=== PATIENT | female | born 1995 | race African-American/Black ===

== ENCOUNTER 2023-11-27 23:12 | Inpatient (IN) | payer SELFPAY ==
[~2023-11-27] VITALS: Ht 170.2 cm; Wt 56.7 kg
[2023-11-27 23:53] LABS: BASOPHILS % 0.3 % (0.0-2.0); DIFFERENTIAL COMMENT 0; HEMATOCRIT. 38.9 % (36.0-48.0); HEMOGLOBIN. 11.7 g/dL (12.0-16.0); LYMPHOCYTES % 21.3 % (20.0-50.0); MEAN CORPUSCULAR HEMOGLOBIN 24.3 pg (28.0-32.0); MEAN CORPUSCULAR HGB CONC 30.2 g/dL (31.0-37.0); MEAN CORPUSCULAR VOLUME 80.6 fL (81.0-99.0); MEAN PLATELET VOLUME 8.9 fl (7.4-10.4); NEUTROPHILS % 73.4 % (40.0-76.0); PLATELET 480 x1000/uL (130-400); RED BLOOD CELL COUNT 4.83 mill/uL (4.2-5.4); RED CELL DISTRIBUTION WIDTH 18.9 % (11.6-14.6); WHITE BLOOD COUNT 12.7 x1000/uL (4.5-11.0)
[2023-11-27 23:58] LABS: CHLORIDE 101 mEq/L (98-107); SODIUM 134 mEq/L (136-145)
[2023-11-27 23:59] LABS: CARBON DIOXIDE 15 mEq/L (21-32)
[2023-11-28] VITALS (15 sets, daily range): BP systolic 111–154; BP diastolic 66–104; PULSE 83–108; RESP 11–27; TEMP 98–98.6
[2023-11-28 00:04] LABS: GLUCOSE 187 mg/dL (70-105)
[2023-11-28 00:05] LABS: UREA NITROGEN BLOOD 20 mg/dL (9-23)
[2023-11-28 00:12] LABS: CLARITY URINE CLOUDY (CLEAR); COLOR URINE YELLOW (YELLOW); GLUCOSE URINE NEGATIVE (NEGATIVE); KETONES URINE 4+ (NEGATIVE); LEUKOCYTE ESTERASE URINE 1+ (NEGATIVE); NITRITE URINE NEGATIVE (NEGATIVE); OCCULT BLOOD URINE 3+ (NEGATIVE); PH URINE 5.5 (4.5-8.0); PROTEIN URINE 2+ (NEGATIVE); SPECIFIC GRAVITY URINE 1.026 (1.005-1.030)
[2023-11-28 00:17] LABS: POTASSIUM 7.8 mEq/L (3.5-5.1)
[2023-11-28] MEDS ORDERED: DEXTROSE 50% WATER 50ML SYRINGE IV PRN ×3 (00:30→17:45)
[2023-11-28] MEDS: BLOOD SUGAR DIAGNOSTIC STRIP TEST SCH ×3 (00:30→17:50)
[2023-11-28] MEDS ORDERED: INSULIN REGULAR (DRIP) 100 UNITS in SODIUM CHLORIDE 0.9% 99 ML IV SCH (00:30)
[2023-11-28] MEDS ORDERED: MAGNESIUM 2 G PREMIX 50 ML IV PRN (00:30)
[2023-11-28] MEDS ORDERED: POTASSIUM CHLORIDE 40 MEQ in SODIUM CHLORIDE 0.9% 230 ML IV PRN ×2 (00:30→09:15)
[2023-11-28] MEDS ORDERED: SODIUM PHOSPHATE 15 MMOL in SODIUM CHLORIDE 0.9% 245 ML IV PRN (00:30)
[2023-11-28] MEDS ORDERED: CEFTRIAXONE 1GM/50ML 50 ML IV ONE (00:30)
[2023-11-28] MEDS ORDERED: BLOOD SUGAR DIAGNOSTIC STRIP TEST PRN ×2 (00:30→09:15)
[2023-11-28 00:58] LABS: INR 0.9; PROTHROMBIN TIME 10.6 sec (9.6-11.0)
[2023-11-28 01:00] LABS: ALANINE AMINOTRANSFERASE 23 IU/L (10-49); ALBUMIN 5.4 g/dL (3.2-4.8); ASPARTATE AMINOTRANSFERASE 60 IU/L (<34); BILIRUBIN DIRECT 0.3 mg/dL (<=3.0); BILIRUBIN TOTAL 1.4 mg/dL (0.1-1.0); PHOSPHORUS 3.6 mg/dL (2.5-4.9); PROTEIN TOTAL 9.1 g/dL (6.0-8.3)
[2023-11-28 01:06] LABS: TROPONIN I HIGH SENSITIVITY < 4 ng/L (3.0-34)
[2023-11-28 01:26] LABS: LACTIC ACID 2.1 mmol/L (0.4-2.0)
[2023-11-28 01:29] LABS: HCG SCREEN NEGATIVE
[2023-11-28] MEDS: CEFTRIAXONE 1GM/50ML 50 ML IV NR (03:04)
[2023-11-28] MEDS: SODIUM CHLORIDE 0.9% 1000ML BAG (SEPSIS BOLUS) IV ONE (03:05)
[2023-11-28] MEDS: DEXT 5%/0.9% NACL 1,000 ML IV SCH ×2 (03:18→09:30)
[2023-11-28] MEDS: KCL 20MEQ/100ML PREMIX 100 ML IV PRN (03:30)
[2023-11-28 04:18] LABS: CHLORIDE 100 mEq/L (98-107); POTASSIUM 4.4 mEq/L (3.5-5.1); SODIUM 136 mEq/L (136-145)
[2023-11-28 04:19] LABS: CALCIUM 9.6 mg/dL (8.7-10.4); CARBON DIOXIDE 15 mEq/L (21-32)
[2023-11-28 04:20] LABS: SQUAMOUS EPITHELIAL CELL URINE 1+ /lpf (RARE/1+)
[2023-11-28 04:22] LABS: RBC URINE 50-100 /hpf (0-2)
[2023-11-28 04:24] LABS: BACTERIA URINE TRACE
[2023-11-28 04:24] LABS: CREATININE 0.9 mg/dL (0.6-1.0); GLUCOSE 212 mg/dL (70-105); UREA NITROGEN BLOOD 20 mg/dL (9-23)
[2023-11-28] MEDS: INSULIN REGULAR 100U/100ML PMX 100 ML IV SCH (04:26)
[2023-11-28] MEDS: VANCOMYCIN 1G PREMIX 200 ML IV NR (05:45)
[2023-11-28] MEDS ORDERED: IPRATROPIUM/ALBUTEROL 0.5-3(2.5)MG/3ML NEB HHN PRN (08:00)
[2023-11-28] MEDS ORDERED: DOCUSATE SODIUM 100MG CAPSULE PO PRN (08:00)
[2023-11-28] MEDS ORDERED: MAGNESIUM/ALUMINUM HYDROXIDE/SIMETHICONE 30ML UDC PO PRN (08:00)
[2023-11-28] MEDS ORDERED: GUAIFENESIN 200MG/10ML SUGAR FREE UDC PO PRN (08:00)
[2023-11-28] MEDS ORDERED: CLONIDINE 0.1MG TABLET PO PRN (08:00)
[2023-11-28] MEDS ORDERED: ACETAMINOPHEN 325MG TABLET PO PRN ×2 (08:00)
[2023-11-28 08:58] LABS: CARBON DIOXIDE 17 mEq/L (21-32); CHLORIDE 103 mEq/L (98-107); POTASSIUM 4.4 mEq/L (3.5-5.1); SODIUM 137 mEq/L (136-145)
[2023-11-28 08:59] LABS: CALCIUM 9.3 mg/dL (8.7-10.4)
[2023-11-28 09:04] LABS: GLUCOSE 254 mg/dL (70-105); UREA NITROGEN BLOOD 17 mg/dL (9-23)
[2023-11-28] MEDS ORDERED: KCL 20MEQ/100ML PREMIX 100 ML IV PRN (09:15)
[2023-11-28] MEDS: SODIUM CHLORIDE 0.9% 1,000 ML IV SCH (09:24)
[2023-11-28] MEDS ORDERED: INSULIN REGULAR 100U/100ML PMX 100 ML IV SCH (09:30)
[2023-11-28 10:16] LABS: *AMPHETAMINES SCREEN URINE NEGATIVE (NEGATIVE); *BARBITURATES SCREEN URINE NEGATIVE (NEGATIVE); *BENZODIAZEPINES SCREEN URINE NEGATIVE (NEGATIVE); *COCAINE SCREEN URINE NEGATIVE (NEGATIVE); CANNABINOID URINE SCREEN PRESUMPTIVE POSITIVE (NEGATIVE); METHADONE URINE SCREEN NEGATIVE (NEGATIVE); OPIATES URINE SCREEN NEGATIVE (NEGATIVE); PHENCYCLIDINE URINE SCREEN NEGATIVE (NEGATIVE)
[2023-11-28 10:17] LABS: ECSTASY MDMA SCREEN URINE NEGATIVE (NEGATIVE)
[2023-11-28] MEDS: ONDANSETRON HCL 4MG/2ML INJ IV PRN (11:21)
[2023-11-28 16:02] LABS: CALCIUM 8.5 mg/dL (8.7-10.4); CARBON DIOXIDE 20 mEq/L (21-32); CHLORIDE 110 mEq/L (98-107); POTASSIUM 3.7 mEq/L (3.5-5.1); SODIUM 139 mEq/L (136-145)
[2023-11-28 16:07] LABS: IRON 39 ug/dL (50-170)
[2023-11-28 16:08] LABS: CREATININE 0.8 mg/dL (0.6-1.0); GLUCOSE 139 mg/dL (70-105); UREA NITROGEN BLOOD 14 mg/dL (9-23)
[2023-11-28 16:10] LABS: TOTAL IRON BINDING CAPACITY 283 ug/dl (250-425)
[2023-11-28] MEDS ORDERED: POTASSIUM CHLORIDE IV ONE (18:00)
[2023-11-28] MEDS ORDERED: DEXT IV ONE (18:00)
[2023-11-28] MEDS ORDERED: NACL IV ONE (18:00)
[2023-11-28] MEDS: INSULIN LISPRO 100 UNITS/ML SUBCUT SCH (18:20)
[2023-11-28] MEDS: DEXT 5%/0.9% NACL KCL 20MEQ/L 1,000 ML IV ONE (18:28)
[2023-11-28] MEDS: INSULIN GLARGINE 100 UNITS/ML SUBCUT NR (18:37)
[2023-11-28 21:16] LABS: CHLORIDE 108 mEq/L (98-107); POTASSIUM 3.5 mEq/L (3.5-5.1); SODIUM 139 mEq/L (136-145)
[2023-11-28 21:17] LABS: CALCIUM 8.2 mg/dL (8.7-10.4); CARBON DIOXIDE 21 mEq/L (21-32)
[2023-11-28 21:22] LABS: CREATININE 0.8 mg/dL (0.6-1.0); GLUCOSE 241 mg/dL (70-105); UREA NITROGEN BLOOD 10 mg/dL (9-23)
[2023-11-28] MEDS: INSULIN GLARGINE 100 UNITS/ML SUBCUT SCH (23:17)
[2023-11-29] VITALS (19 sets, daily range): BP systolic 116–163; BP diastolic 61–96; PULSE 73–112; RESP 10–25; TEMP 97.8–98.3
[2023-11-29 00:56] LABS: CARBON DIOXIDE 21 mEq/L (21-32); CHLORIDE 110 mEq/L (98-107); POTASSIUM 3.5 mEq/L (3.5-5.1); SODIUM 139 mEq/L (136-145)
[2023-11-29 00:57] LABS: CALCIUM 8.2 mg/dL (8.7-10.4)
[2023-11-29 01:01] LABS: CREATININE 0.7 mg/dL (0.6-1.0); GLUCOSE 153 mg/dL (70-105)
[2023-11-29 01:02] LABS: UREA NITROGEN BLOOD 8 mg/dL (9-23)
[2023-11-29] MEDS: ONDANSETRON HCL 4MG/2ML INJ IV PRN (01:45)
[2023-11-29] MEDS: CEFTRIAXONE 1GM/50ML 50 ML IV SCH (01:46)
[2023-11-29 06:02] LABS: HEMATOCRIT 27.6 % (36.0-48.0); HEMOGLOBIN 8.6 g/dL (12.0-16.0); MEAN CORPUSCULAR HEMOGLOBIN 24.9 pg (28.0-32.0); MEAN CORPUSCULAR HGB CONC 31.1 g/dL (31.0-37.0); MEAN CORPUSCULAR VOLUME 79.9 fL (81.0-99.0); PLATELET 289 x1000/uL (130-400); RED BLOOD CELL COUNT 3.46 mill/uL (4.2-5.4); RED CELL DISTRIBUTION WIDTH 18.8 % (11.6-14.6); WHITE BLOOD COUNT 8.8 x1000/uL (4.5-11.0)
[2023-11-29 06:13] LABS: CHLORIDE 108 mEq/L (98-107); POTASSIUM 3.4 mEq/L (3.5-5.1); SODIUM 138 mEq/L (136-145)
[2023-11-29 06:14] LABS: CARBON DIOXIDE 21 mEq/L (21-32)
[2023-11-29 06:15] LABS: CALCIUM 8.3 mg/dL (8.7-10.4)
[2023-11-29 06:19] LABS: CREATININE 0.8 mg/dL (0.6-1.0); GLUCOSE 221 mg/dL (70-105)
[2023-11-29 06:20] LABS: UREA NITROGEN BLOOD 9 mg/dL (9-23)
[2023-11-29 06:22] LABS: PHOSPHORUS 1.6 mg/dL (2.5-4.9)
[2023-11-29 07:51] LABS: BG BASE EXCESS -3.6 mmol/L (-2.0-2.0); BG CARBOXYHEMOGLOBIN 0.8 % (0.5-1.5); BG DEOXYHEMOGLOBIN 1.1 % (0.0-5.0); BG FRACTION INSPIRED OXYGEN 21; BG HCO3 ACT 19.6 mmol/L (22.0-26.0); BG METHEMOGLOBIN 0.3 % (0.0-1.5); BG OXYGEN SATURATION 98.9 % (92.0-98.5); BG OXYHEMOGLOBIN 97.8 % (94.0-97.0); BG PCO2 29.3 mmHg (35.0-45.0); BG PH 7.444 (7.350-7.450); BG PO2 119.2 mmHg (75.0-100.0); BG SAMPLE SITE LEFT BRACHIAL; BG TOTAL HEMOGLOBIN 9.7 g/dL (12.0-18.0); BG VENT MODE ROOM AIR
[2023-11-29] MEDS ORDERED: MAGNESIUM 2 G PREMIX 50 ML IV NR (08:00)
[2023-11-29] MEDS ORDERED: FERROUS SULFATE 325MG TABLET PO SCH (08:20)
[2023-11-29] MEDS: INSULIN LISPRO 100 UNITS/ML SUBCUT SCH ×2 (09:50→21:59)
[2023-11-29] MEDS: FERROUS SULFATE 325MG TABLET PO SCH (09:52)
[2023-11-29] MEDS ORDERED: POTASSIUM PHOSPHATE 30 MMOL in SODIUM CHLORIDE 0.9% 490 ML IV NR (10:00)
[2023-11-29] MEDS: POTASSIUM PHOSPHATE IV NR (11:46)
[2023-11-29] MEDS: SODIUM CHLORIDE 0.9% IV NR (11:46)
[2023-11-29] MEDS: INSULIN GLARGINE 100 UNITS/ML SUBCUT SCH (21:57)
[2023-11-30] VITALS: BP 130/75; PULSE 81; RESP 19; TEMP 98.1
[2023-11-30 04:00] VITALS: BP 140/84; PULSE 73; RESP 19; TEMP 97.9
[2023-11-30 07:31] LABS: CARBON DIOXIDE 26 mEq/L (21-32); CHLORIDE 101 mEq/L (98-107); POTASSIUM 3.7 mEq/L (3.5-5.1); SODIUM 134 mEq/L (136-145)
[2023-11-30 07:36] LABS: CREATININE 0.8 mg/dL (0.6-1.0)
[2023-11-30 07:37] LABS: GLUCOSE 315 mg/dL (70-105)
[2023-11-30 07:45] LABS: UREA NITROGEN BLOOD < 5 mg/dL (9-23)
[2023-11-30 08:15] LABS: HEMATOCRIT 31.4 % (36.0-48.0); MEAN CORPUSCULAR HEMOGLOBIN 25.1 pg (28.0-32.0); MEAN CORPUSCULAR HGB CONC 31.8 g/dL (31.0-37.0); MEAN CORPUSCULAR VOLUME 78.9 fL (81.0-99.0); PLATELET 301 x1000/uL (130-400); RED BLOOD CELL COUNT 3.97 mill/uL (4.2-5.4); RED CELL DISTRIBUTION WIDTH 18.6 % (11.6-14.6)
[2023-11-30] MEDS: MAGNESIUM 2 G PREMIX 50 ML IV NR (11:12)
[2023-11-30] MEDS ORDERED: CEPH500C2 MT (15:01)
[2023-11-30 16:25] VITALS: BP 106/65; PULSE 75; TEMP 98.2; O2SAT 97
== END 2023-11-30 16:51 | disposition home or self-care (01) | DRG 720 ==
LOC: ER 23:47 → CVICU 11-28 04:38 → EDBEDREQ 11-28 05:11 → EDBEDREQTM 11-28 05:11 → 6EST 11-29 14:35
PROVIDERS: ADMIT Internal Medicine; ATTEND Internal Medicine
DX: A41.9 Sepsis, unspecified organism (principal); E10.10 Type 1 diabetes mellitus with ketoacidosis without coma; E83.39 Other disorders of phosphorus metabolism; D50.9 Iron deficiency anemia, unspecified; E83.42 Hypomagnesemia; F12.90 Cannabis use, unspecified, uncomplicated; B95.1 Streptococcus, group B, as the cause of diseases classified elsewhere; E87.6 Hypokalemia; N39.0 Urinary tract infection, site not specified; E86.0 Dehydration; Z51.5 Encounter for palliative care; Z79.4 Long term (current) use of insulin; Z91.148 Patient's other noncompliance with medication regimen for other reason
CPT/HCPCS: 36415; 36600; 71045; 80048; 80076; 80305; 81003; 82010; 82375; 82728; 82805; 82962; 83036; 83540; 83550; 83605; 83735; 83930; 84100; 84132; 84145; 84484; 84703; 85025; 85027; 87077; 93005; 99291; J0696; J1815; J2405; J3475; J3480; J3490; J7030; J7040; J7042